=== PATIENT | female | born 1955 | race Caucasian/White ===

== ENCOUNTER 2016-11-12 16:58 | Inpatient (IN) | payer MEDICAID ==
[2016-11-12] MEDS ORDERED: NORMAL SALINE 1,000 ML IV ONE (18:04)
[2016-11-12 18:23] LABS: Hematocrit 45.8 % (37.0-47.0); Hemoglobin 15.5 gm/dL (12.5-16.0); Mean Corpuscular Hemoglobin 28.8 pg (27-31); Mean Corpuscular Hgb Conc 33.8 g/dl (32-36); Mean Platelet Volume 10.5 fl (6.0-9.5); Neutrophil # 11.6 K/mm3 (1.3-6.0); Neutrophil % 76.9 % (42-75.0); Platelet Count 245 K/mm3 (150-450); Red Blood Count 5.39 M/mm3 (4.2-5.4); Red Cell Distribution Width 13.6 % (11.5-14.0); White Blood Count 15.1 K/mm3 (4.0-10.5)
[2016-11-12 18:37] LABS: Urine Bilirubin 1 mg/dl (NEGATIVE); Urine Blood 50 /ul (NEGATIVE); Urine Ketone 15 mg/dL (NEGATIVE); Urine Nitrite Negative (NEGATIVE); Urine Protein 15 mg/dL (NEGATIVE); Urine Specific Gravity >=1.030 SP.GR. (1.005-1.010); Urine Urobilinogen Normal (NORMAL)
[2016-11-12 18:44] LABS: Albumin * 4.1 gm/dl (3.4-5.0); Anion Gap 15.2 mmol/L (6.8-13.8); BUN/Creatinine Ratio 21.1 (9.0-21.6); Bilirubin, Total 0.6 mg/dL (0.0-1.1); Ca. Corrected For Albumin 8.7 mg/dL (8.4-10.2); Calcium * 9.1 mg/dL (7.9-10.9); Carbon Dioxide 24.6 mmol/L (24-32.6); Potassium 2.8 mmol/L (3.4-4.6); T4 Free * 1.08 ng/dL (0.76-1.46); TSH * 0.783 uIU/mL (0.358-3.74); Total Protein 8.1 gm/dL (6.2-8.2); Troponin I 0.03 ng/ml (0.00-0.10)
--- NOTE | 2016-11-12 18:47 | ERNOTE ---
Neuro HPI ER Record Date of Service: 11/12/16 Presenting Symptoms: weakness - left sided weakness, facial droop - left sided facial droop, visual loss Time Seen by Provider: 11/12/16 17:34 Source: patient Exam Limitations: no limitations Allergies/Adverse Reactions: Allergies Allergy/AdvReac Type Severity Reaction Status Date / Time Penicillins Allergy Verified 11/12/16 17:07 Home Medications: HOME MEDICATIONS ALPRAZolam [Xanax] 0.25 mg PO TID 11/12/16 [Last Taken Unknown] Metoprolol Succinate [Toprol Xl] 25 mg PO BID 11/12/16 [Last Taken Unknown] - History of Present Illness Narrative: Pt presents to the ED with c/o headache and hypertension. Pt rates headache pain 03/10. Pt admits to dizziness, lightheadedness that started yesterday. Pt states she took multiple tablets of her blood pressure medication unsure of the exact number because she felt like her blood pressure was elevated. Pt states after she took the medication she had to lye down because she felt like she was going to pass out. Pt states she has been having headaches for past 3 months now along with dizziness. Pt states yesterday she had a hard time getting her words out. She knew what she wanted to say but was unable to say it. Pt also states she had left sided weakness yesterday. She tried to lift a pencil and dropped it. Pt also admits to vision changes. Pt states her left eye is worse than right but is not able to see a complete picture. She sees black spots when focusing on something or trying to read. Pt further states that when she gets dizzy the room doesn't spin she feels like she is spinning. Pt denies falling. Date (Duration): 11/11/16 Last Date Known Well: 11/12/16 Last Time Known Well: 18:23 Onset: sudden onset Severity: moderate - Character of Deficits New weakness: Present: LUE, LLE, facial (lt) Additional Deficits: Present: vision problems, impaired speech, weakness. Absent: difficulty swallowing, decrease ability to stand, decrease ability to walk, falling, off balance, cannot walk, cannot stand, bed-ridden Baseline Cognition: Present: alert, oriented x 4 Baseline Gait: Present: walks w/o assistance Associated Symptoms: Reports: headache - pain 03/10. Denies: fever/chills, sweating, chest pain, neck/back pain, fainting, seizure, altered mental status, disoriented, confused, trouble concentrating, unresponsive Review of Systems - Review of Systems Constitutional: Present: weakness - left sided weakness. Absent: recent illness , fever, chills, fatigue, malaise EYE: Present: blurred vision, vision changes - unable to see complete picture. Sees black spots. Absent: eye discharge, double vision ENT: Present: no symptoms reported. Absent: ear pain, nose pain, nose congestion, nasal drainage, sore throat Respiratory: Present: no symptoms reported. Absent: shortness of breath, cough , wheezing Cardiology: Present: other - feels like heart is doing flip flops. Absent: chest pain, palpitations Gastrointestinal/Abdominal: Present: nausea. Absent: vomiting, diarrhea, constipation, abdominal pain Genitourinary: Present: no symptoms reported. Absent: frequency, pain Musculoskeletal: Present: no symptoms reported. Absent: back pain, muscle pain , neck pain Skin: Present: no symptoms reported. Absent: rash, change in color Neurological: Present: headache - pain 7/10, dizziness/light-headedness, weakness - left side of body. Absent: anxiety, depressed, seizure, numbness, tingling Endocrine: Present: no symptoms reported. Absent: excessive sweating, flushing , intolerance to heat, intolerance to cold, increased hunger, increased thirst, increased urine Hematologic/Lymphatic: Present: no symptoms reported. Absent: easy bruising, easy bleeding Psych: Present: no symptoms reported. Absent: anxiety, depressed All Other Systems: All systems neg except as marked - Patient's Past Medical History Patient History - Medical: Anxiety, Diabetes Type 1, Headache, Other Patient History - Cardiac/Respiratory: Hypertension, Hyperlipidemia Patient History - Cancer: No Hx of Cancer Patient History - Surgical Procedures: Appendectomy, Back Surgery, Cholecystectomy, Hysterectomy - Social History Smoking Status: Current every day smoker Have you smoked in the past 12 months: Yes Physical Exam - Physical Exam General Appearance: Present: wd/wn, alert, no apparent distress, active, attentive for age. Absent: anxious, lethargic Eye Exam: Normal inspection: bilateral, PERRL: bilateral, EOMI: bilateral Ears, Nose, Throat: Present: normal ENT inspection, normal pharynx. Absent: hearing decreased, nasal congestion, sinus pain/drainage Neck: Present: normal inspection, nontender, supple, full range of motion Respiratory: Present: no respiratory distress, normal breath sounds, no accessory muscle use, chest nontender, lungs clear. Absent: decreased breath sounds, crackles, rales, rhonchi, stridor, wheezing, pleural rub Cardiovascular/Chest: Present: regular rate, rhythm, no murmur, normal peripheral pulses. Absent: tachycardia, bradycardia Gastrointestinal/Abdominal: Present: normal bowel sounds, nontender, nondistended, soft, no organomegaly. 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 Absent: decreased range of motion Neurological Exam: Present: alert, oriented, normal mood/affect, no motor/ sensory deficits, facial droop - left sided facial droop and drooling. 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 Absent: skin rash Lymphatic Exam: Present: no adenopathy Slava Coma Scale - Assess Eye Opening: Spontaneous Motor: Obeys Commands Verbal: Oriented - Total Coma Scale Total: 15 Initial Stroke Assessment - Date/Time of assessment Stroke Scale Date: 11/12/16 Stroke Scale Time: 18:00 - NIH Stroke Scale Level of Consciousness: Alert LOC Questions (Year and Age): Answers both correctly LOC Commands (open/close eyes/fist): Performs both correctly Lateral Gaze Paresis: None Visual Field Loss: Partial hemianopsia - left eye Facial Palsy: Partial facial paralysis - left sided facial droop Right Arm Motor (10 sec hold): No drift Left Arm Motor (10 sec hold): No drift Right Leg Motor (5 sec hold): No drift Left Leg Motor (5 sec hold): No drift Limb Ataxia (finger/nose heel/keenan): Present in 1 limb If present, ataxia in:: Left arm Sensory Loss (pinprick arms/legs/face): No sensory loss Language Aphasia (description/naming/reading): No aphasia; normal Dysarthria (speech clarity): Slurring, intelligeble Neglect Inattention (visual/tactile/auditory/spatial/person): No neglect Initial Stroke Scale Score:: 5 - Stroke Risk Assessment Stroke Risk Assessment Level: 5-15 Mild-Mod Severe Imp Stroke Inclusion/Exclusion Cri - A Inclusion (Must answer Yes to meet): No - Inclusion Questions: Yes Onset of symptoms <3 1/2 hours of admission to ETC: No - B Exclusion (Must answwer No to meet): yes - Exclusion Questions: Major symptoms rapidly improving: No Seizure at onset of stroke: No SBP>185; DBP>110 at time treatment is to begin: Yes Patient received Heparin or Coumadin within 48 hours: No Patient has elevated PTT or Protime/INR: No Stroke, head injury, major surgery, serious trauma in 3 mon.: No Previous intracranial hemmorhage: No Recent IL: No Known AV malformation or aneurysm: No Blood glucose <50mg/dl or >400mg/dl: No NIHSS Score <4 or >22 performed by physician: No - Total NIHSS Score Score:: 5 ED Progress - Date and Time Seen: Date and Time: 11/12/16 20:11 Discussed with Triny and we will admit for CVA. - Results and Orders Patient's Lab Results:: I have reviewed the patient's lab results. - Vital Signs Patient's Vital Signs:: I have reviewed the patient's vital signs. Vital Signs: Vital Signs 11/12/16 11/12/16 17:03 17:34 Temperature 36.7 C 36.9 C Pulse Rate 80 75 Respiratory 14 14 Rate Blood Pressure 153/88 186/82 O2 Sat by Pulse 100 95 Oximetry - EKG EKG: other - sinus rhythm with u wave or possible flutter EKG read: Interp. by me - X-Ray X-Ray #1 X-Ray: chest Interpretation: Reviewed by me X-ray Comments: hyperinflation no acute - CT/Ultrasound CT/Ultrasound Narrative: CT with evidence for sub acute CVA involving R temporal and mid to posterior R parietal. - Progress/Reassessment Chief Complaint: Headache Departure Clinical Impression: Hypokalemia CVA (cerebral vascular accident) Qualifiers: CVA mechanism: unspecified Qualified Code(s): I63.9 - Cerebral infarction, unspecified - Departure Disposition: [facility] Condition: Fair
[2016-11-12 18:53] LABS: Urine Appearance Clear; Urine Bacteria 2+; Urine Color Yellow; Urine RBC 0-5 /hpf (0-5)
[2016-11-12] MEDS ORDERED: POTASSIUM CHLORIDE 20 MEQ TABLET.SA PO ONE (19:38)
[2016-11-12] MEDS ORDERED: POTASSIUM CHLORIDE 20 MEQ TABLET.SA ONE (19:42)
[2016-11-12] MEDS: POTASSIUM CHLORIDE 100 ML IV SCH (20:18)
[2016-11-12 21:00] LABS: Hemoglobin A1C 5.7 % (4.00-6.0)
--- NOTE | 2016-11-12 21:04 | HP ---
Chief Complaint - Chief Complaint Date of Service: 11/12/16 Time of Service: 20:41 Chief Complaint: Weakness, slurred speech, drooling History of Present Illness: 60 years old female adm to the hospital from ER with reports of weakness, slurred speech and drooling that began last Friday. PMH significant for hypertension, migraine, anxiety and smoker. Pt stated while at work on Friday she was having severe headache that was unrelieved with ibuprofen, she noticed that she was having problem remembering, paralysis in left hand as items would fall from her hand. Pt report hard time drinking thin liquids and haven't had anything to eat since. Pt stated since Friday her s/s haven't progress worst or got better so she came to the ER today. When seen she denies headache , blurred vision, palpitation. or progression or deficits. In ER CT head: Subacute cortical infraction involving the right temporal and mid-posterior right parietal lobe. MRI brain pending, carotid duplex pending. pt is agreeable for nicotine patch. Plan of care discussed with pt she verbalized understanding ad agree. - Patient's Past Medical History Patient History - Medical: Anxiety, Headache, Other - smoker Patient History - Cardiac/Respiratory: Hypertension Patient History - Cancer: No Hx of Cancer Patient History - Surgical Procedures: Appendectomy, Back Surgery - laminectomy , Cholecystectomy, Hysterectomy - Family History Father Family History - Cardiac/Respiratory: Hypertension, Myocardial Infarction Grandmother-Paternal Family History - Cardiac/Respiratory: CVA/Stroke - Social History Living Situations: alone Abuse History: No History of abuse Psych History: Hx of Anxiety Does anyone smoke in the home?: Yes Smoking Status: Current every day smoker Have you smoked in the past 12 months: Yes Do you dip or chew tobacco: No Patient requests Smoking Cessation Consult: Yes Initiate information on Smoking Cessation: Yes Alcohol Use: none Drug Use: none Review Of Systems (GEN) - Review of Systems Generalized/Overall Review: Present: Weakness EENTM: Present: No Symptoms Reported Respiratory: Present: No Symptoms Reported Cardiac: Present: No Symptoms Reported Abdominal: Present: No Symptoms Reported Genitourinary: Present: No Symptoms Reported Musculoskeletal: Present: Other - weakness Neurological: Present: Headache, Weakness Skin: Present: No Symptoms Reported Endocrine: Present: No Symptoms Reported Allergies/Adverse Reactions: Allergies Allergy/AdvReac Type Severity Reaction Status Date / Time Penicillins Allergy Verified 11/12/16 17:07 Home Medications: HOME MEDICATIONS ALPRAZolam [Xanax] 0.25 mg PO TID 11/12/16 [Last Taken Unknown] Metoprolol Succinate [Toprol Xl] 25 mg PO BID 11/12/16 [Last Taken Unknown] Exam - Exam Vital Signs: Vital Signs - Last Taken Temp 36.9 C 11/12/16 17:34 Pulse 83 11/12/16 20:24 Resp 18 11/12/16 20:24 BP 174/75 11/12/16 20:24 Pulse Ox 94 11/12/16 20:24 Constitutional: Present: Alert, Oriented x3, Cooperative, Well developed, No distress, Middle aged, Obese ENT Exam: Present: dry mucous membranes, other - dysphagia Neck: Present: full range of motion Back Exam: Present: normal inspection Breasts: Present: Exam deferred Respiratory: Present: chest non-tender, normal breath sounds, no respiratory distress, decreased breath sounds Cardiovascular/Chest: Present: normal peripheral pulses, regular rate, rhythm, no chest tenderness, no edema Abdomen: Present: Normal bowel sounds, soft, nontender, nondistended, no rebound tenderness /Rectal: Present: Exam deferred Extremity: Present: other - Leftside hemiparesis Skin Exam: Present: normal color, warm/dry, no cyanosis Neurologic: Present: oriented x 3, facial droop - Leftside, motor weakness Appearance: Present: appropriate insight Eye contact: Present: cooperative, good eye contact Thoughts: Present: no apparent hallucination Diagnostic Studies: Laboratory Results WBC 15.1 K/mm3 (4.0-10.5) H 11/12/16 18:10 RBC 5.39 M/mm3 (4.2-5.4) 11/12/16 18:10 Hgb 15.5 gm/dL (12.5-16.0) 11/12/16 18:10 Hct 45.8 % (37.0-47.0) 11/12/16 18:10 MCV 85.0 fl (78-100) 11/12/16 18:10 MCH 28.8 pg (27-31) 11/12/16 18:10 MCHC 33.8 g/dl (32-36) 11/12/16 18:10 RDW 13.6 % (11.5-14.0) 11/12/16 18:10 Plt Count 245 K/mm3 (150-450) 11/12/16 18:10 MPV 10.5 fl (6.0-9.5) H 11/12/16 18:10 Immature Gran % (Auto) 0.40 % (0.001-0.429) 11/12/16 18:10 Immature Gran # (Auto) 0.06 K/mm3 (0.000-0.0310) H 11/12/16 18:10 Neutrophils % 76.9 % (42-75.0) H 11/12/16 18:10 Lymphocytes % 17.8 % (20-51) L 11/12/16 18:10 Monocytes % 4.6 % (0.0-9) 11/12/16 18:10 Eosinophils % 0.2 % (0.0-3.0) 11/12/16 18:10 Basophils % 0.1 % (0.0-1.0) 11/12/16 18:10 Nucleated RBC % 0.0 k/mm3 (0-1) 11/12/16 18:10 Neutrophils # 11.6 K/mm3 (1.3-6.0) H 11/12/16 18:10 Lymphocytes # 2.7 k/mm3 (1.5-3.5) 11/12/16 18:10 Monocytes # 0.7 k/mm3 (0.0-1.0) 11/12/16 18:10 Eosinophils # 0.0 k/mm3 (0.0-0.7) 11/12/16 18:10 Absolute Basophils 0.0 k/mm3 (0.0-0.1) 11/12/16 18:10 D-Dimer 0.44 mg/L (0.19-0.49) 11/12/16 18:10 Sodium 143 mmol/L (132-142) H 11/12/16 18:10 Plasma Sodium 143 mmol/L (130-142) H 11/12/16 18:10 Potassium 2.8 mmol/L (3.4-4.6) L 11/12/16 18:10 Chloride 106 mmol/L (97-106) 11/12/16 18:10 Carbon Dioxide 24.6 mmol/L (24-32.6) 11/12/16 18:10 Anion Gap 15.2 mmol/L (6.8-13.8) H 11/12/16 18:10 BUN 20 mg/dL (3-23) 11/12/16 18:10 Creatinine 0.95 mg/dL (0.4-1.4) 11/12/16 18:10 Est GFR (Non-Af Amer) 64 mL/min (60-130) 11/12/16 18:10 BUN/Creatinine Ratio 21.1 (9.0-21.6) 11/12/16 18:10 Random Glucose 102 mg/dL (70-110) 11/12/16 18:10 Calcium 9.1 mg/dL (7.9-10.9) 11/12/16 18:10 Calcium Adj for Albumin 8.7 mg/dL (8.4-10.2) 11/12/16 18:10 Total Bilirubin 0.6 mg/dL (0.0-1.1) 11/12/16 18:10 AST 18 U/L (0-48) 11/12/16 18:10 ALT 20 U/L (19-67) 11/12/16 18:10 Alkaline Phosphatase 89 U/L (50-170) 11/12/16 18:10 Troponin I 0.030 ng/ml (0.00-0.10) 11/12/16 18:10 Total Protein 8.1 gm/dL (6.2-8.2) 11/12/16 18:10 Albumin 4.1 gm/dl (3.4-5.0) 11/12/16 18:10 TSH 0.783 uIU/mL (0.358-3.74) 11/12/16 18:10 Free T4 1.08 ng/dL (0.76-1.46) 11/12/16 18:10 Urine Color Yellow 11/12/16 18:20 Urine Appearance Clear 11/12/16 18:20 Urine pH 6.0 pH (5.0-7.0) 11/12/16 18:20 Ur Specific [place] >=1.030 SP.GR. (1.005-1.010) 11/12/16 18:20 Urine Protein 15 mg/dL (NEGATIVE) H 11/12/16 18:20 Urine Glucose (UA) Negative mg/dL (NEGATIVE) 11/12/16 18:20 Urine Ketones 15 mg/dL (NEGATIVE) 11/12/16 18:20 Urine Blood 50 /ul (NEGATIVE) H 11/12/16 18:20 Urine Nitrate Negative (NEGATIVE) 11/12/16 18:20 Urine Bilirubin 1 mg/dl (NEGATIVE) H 11/12/16 18:20 Urine Ictotest QNS 11/12/16 18:20 Prot Sulfosalicylic Acd QNS 11/12/16 18:20 Urine Urobilinogen Normal EU/dl (NORMAL) 11/12/16 18:20 Ur Leukocyte Esterase 100 /ul (NEGATIVE) H 11/12/16 18:20 Urine RBC 0-5 /hpf (0-5) 11/12/16 18:20 Urine WBC 10-25 /hpf (0-5) H 11/12/16 18:20 Ur Epithelial Cells 0-5 /hpf (0-5) 11/12/16 18:20 Urine Bacteria 2+ (NONE) H 11/12/16 18:20 Urine Culture Comments Culture to follow 11/12/16 18:20 Assessment/Plan - Narrative Narrative: Subacute CVA CT head:with evidence for subacute CVA involving right temporal and mid to posterior right parietal lobe. MRI head pending and Hold anticoag until MRI result obtained US carotid pending 2D echo pending Lipid and A1C pending Smoking cessation, initiated nicotine patch Aspirin 81mg q day PT/OT evaluation and treatment Keep NPO and Swallow evaluation Hypokalemia on adm K+ 2.9 Supplemented Monitor CMP in am Hypertension On adm BP 174/75 Permissive hypertension Monitor vital signs Q shift and PRN Smoker: smoking cessation Nicotine patch Migraine- stable Code status: Full Code Anticipate discharge 1-2 days to rehab and follow up with PCP VTE ppx: SCD and ambulate Time 35 minutes - Assessment/Plan (1) Hypokalemia Problem: Acute (2) Hypertension Problem: Chronic Qualifiers: Hypertension type: essential hypertension Qualified Code(s): I10 - Essential (primary) hypertension (3) CVA (cerebral vascular accident) Problem: Acute Qualifiers: CVA mechanism: unspecified Qualified Code(s): I63.9 - Cerebral infarction, unspecified
[2016-11-13] MEDS ORDERED: DEXTROSE 5%-0.5 NORMAL SALINE 1,000 ML IV PRN (00:15)
[2016-11-13] MEDS ORDERED: ALPRAZolam 0.25 MG TABLET PO ONE (00:56)
--- NOTE | 2016-11-13 06:49 | PN ---
Subjective - Date and Time Seen Date: 11/13/16 Time: 06:43 Subjective Narrative: patient seen today AOX3 no acute distress, pt denies progression of s/s overnight. pt is anxious and want to improve quickly. Objective - Review of Systems Generalized/Overall Review: Reports: No Symptoms Reported EENTM: Reports: No Symptoms Reported Respiratory: Reports: No Symptoms Reported Abdominal: Reports: No Symptoms Reported Genitourinary Symptoms: Reports: No Symptoms Reported Musculoskeletal Complaints: Reports: Other - Left side hemeparesis Skin: Reports: No Symptoms Reported Endocrine: Reports: No Symptoms Reported - Vitals Vitals: Last Vital Signs Temp 36.5 C 11/13/16 00:54 Pulse 66 11/13/16 02:32 Resp 20 11/13/16 00:54 BP 152/53 11/13/16 00:54 Pulse Ox 97 11/13/16 00:54 - Exam Constitutional: Present: Alert, Oriented x3, Cooperative, Well developed, No distress ENT Exam: Present: moist mucous membranes Neck: Present: full range of motion Breasts: Present: Exam deferred Respiratory: Present: chest non-tender, lungs clear, normal breath sounds, no respiratory distress Cardiovascular/Chest: Present: normal peripheral pulses, regular rate, rhythm, no chest tenderness, no edema Abdomen: Present: Normal bowel sounds, soft, nontender, nondistended, no rebound tenderness /Rectal: Present: Exam deferred Extremity: Present: normal range of motion, normal inspection, no pedal edema, no calf tenderness Skin Exam: Present: normal color, warm/dry, no cyanosis Neurologic: Present: oriented x 3, facial droop Appearance: Present: appropriate appearance Eye contact: Present: cooperative Thoughts: Present: normal thought pattern Assessment/Plan Plan Narrative: CVA CT head:with evidence for subacute CVA involving right temporal and mid to posterior right parietal lobe. MRI head pending and Hold anticoag until MRI result obtained US carotid pending 2D echo pending Lipid panel pending A1C 5.7 noted Smoking cessation, initiated nicotine patch Aspirin 81mg q day PT/OT evaluation and treatment Keep NPO and Swallow evaluation Hypokalemia on adm K+ 2.9 Supplemented CMP pending Hypertension On adm BP 174/75---->131/59 Permissive hypertension Monitor vital signs Q shift and PRN Smoker: smoking cessation Nicotine patch Migraine- stable UTI: Bactrim x3 days On adm WBC 15.1 Urine culture pending Code status: Full Code Anticipate discharge 1-2 days to rehab and follow up with PCP VTE ppx: SCD and ambulate Time 20 minutes - Problems/Diagnosis (1) Hypokalemia Problem: Acute (2) Hypertension Problem: Chronic Qualifiers: Hypertension type: essential hypertension Qualified Code(s): I10 - Essential (primary) hypertension (3) CVA (cerebral vascular accident) Problem: Acute Qualifiers: CVA mechanism: unspecified Qualified Code(s): I63.9 - Cerebral infarction, unspecified (4) UTI (urinary tract infection) Problem: Acute
[2016-11-13 07:25] LABS: Albumin * 3.5 gm/dl (3.4-5.0); Anion Gap 14.3 mmol/L (6.8-13.8); BUN/Creatinine Ratio 16.7 (9.0-21.6); Bilirubin, Total 0.7 mg/dL (0.0-1.1); Ca. Corrected For Albumin 8.6 mg/dL (8.4-10.2); Calcium * 8.5 mg/dL (7.9-10.9); Carbon Dioxide 25.4 mmol/L (24-32.6); Potassium 2.7 mmol/L (3.4-4.6); Total Protein 6.7 gm/dL (6.2-8.2)
[2016-11-13 07:26] LABS: Chol/HDL Risk Ratio 3.1 mg/dL (3.3-4.4)
[2016-11-13] MEDS ORDERED: METOPROLOL SUCCINATE 25 MG TABLET.SA PO SCH (09:00)
[2016-11-13] MEDS: ASPIRIN 81 MG TAB.CHEW PO SCH (09:16)
[2016-11-13] MEDS: SULFAMETHOXAZOLE/TRIMETHOPRIM 1 TAB TABLET PO SCH ×3 (09:17→20:30)
[2016-11-13] MEDS: ALPRAZolam 0.5 MG TABLET PO SCH ×3 (09:19→17:42)
[2016-11-13] MEDS: NICOTINE 21 MG PATC TD SCH (09:23)
[2016-11-13] MEDS ORDERED: POTASSIUM CHLORIDE 20 MEQ TABLET.SA PO STA (14:29)
[2016-11-13] MEDS: POTASSIUM CHLORIDE 20 MEQ TABLET.SA PO SCH (17:41)
[2016-11-13] MEDS: POTASSIUM CHLORIDE 100 ML IV SCH (17:54)
[2016-11-13] MEDS: ROSUVASTATIN CALCIUM 10 MG TABLET PO SCH (20:30)
[2016-11-13] MEDS: METOPROLOL TARTRATE 25 MG TABLET PO SCH (20:32)
[2016-11-14 06:04] LABS: Hematocrit 41.6 % (37.0-47.0); Mean Cell Volume 86.1 fl (78-100); Mean Corpuscular Hgb Conc 33.7 g/dl (32-36); Mean Platelet Volume 10.8 fl (6.0-9.5); Platelet Count 215 K/mm3 (150-450); Red Blood Count 4.83 M/mm3 (4.2-5.4); Red Cell Distribution Width 13.9 % (11.5-14.0); White Blood Count 12.2 K/mm3 (4.0-10.5)
[2016-11-14 06:28] LABS: Anion Gap 14.2 mmol/L (6.8-13.8); BUN/Creatinine Ratio 14.9 (9.0-21.6); Calcium * 8.8 mg/dL (7.9-10.9); Carbon Dioxide 25.3 mmol/L (24-32.6); Estimated Creat Clear 50.6; Potassium 3.5 mmol/L (3.4-4.6)
[2016-11-14] MEDS: SULFAMETHOXAZOLE/TRIMETHOPRIM 1 TAB TABLET PO SCH ×2 (08:57→21:13)
[2016-11-14] MEDS: ALPRAZolam 0.5 MG TABLET PO SCH ×3 (08:57→17:14)
[2016-11-14] MEDS: ASPIRIN 81 MG TAB.CHEW PO SCH (08:58)
[2016-11-14] MEDS: POTASSIUM CHLORIDE 20 MEQ TABLET.SA PO SCH ×2 (08:58→17:14)
[2016-11-14] MEDS: METOPROLOL TARTRATE 25 MG TABLET PO SCH ×2 (08:59→21:14)
[2016-11-14] MEDS: NICOTINE 21 MG PATC TD SCH (09:02)
--- NOTE | 2016-11-14 16:01 | ECHO ---
This report is available in the EMR
[2016-11-14] MEDS: ROSUVASTATIN CALCIUM 10 MG TABLET PO SCH (21:13)
--- NOTE | 2016-11-14 21:37 | PN ---
Subjective - Date and Time Seen Date: 11/14/16 Time: 21:33 Subjective Narrative: Patient seen today with family friend at the bedside, she is AOX3 no acute distress. Pt denies progression or neuro deficits. Anticipating discharge home tomorrow. Objective - Review of Systems Generalized/Overall Review: Reports: No Symptoms Reported EENTM: Reports: Other - leftside facial droop Respiratory: Reports: No Symptoms Reported Cardiac: Reports: No Symptoms Reported Abdominal: Reports: No Symptoms Reported Genitourinary Symptoms: Reports: No Symptoms Reported Musculoskeletal Complaints: Reports: No Symptoms Reported Neurological: Reports: No Symptoms Reported Skin: Reports: No Symptoms Reported Endocrine: Reports: No Symptoms Reported - Vitals Vitals: Last Vital Signs Temp 37.1 C 11/14/16 19:35 Pulse 62 11/14/16 21:14 Resp 18 11/14/16 19:35 BP 135/62 11/14/16 21:14 Pulse Ox 93 11/14/16 19:35 - Abnormal Lab Findings Abnormal Lab Findings: Abnormal Lab Results 11/14/16 11/14/16 Range/Units 05:42 05:42 WBC 12.2 H (4.0-10.5) K/mm3 MPV 10.8 H (6.0-9.5) fl Sodium 145 H (132-142) mmol/L Plasma Sodium 145 H (130-142) mmol/L Chloride 109 H (97-106) mmol/L Anion Gap 14.2 H (6.8-13.8) mmol/L - Exam Constitutional: Present: Alert, Oriented x3, Cooperative, Well developed, No distress, Young ENT Exam: Present: moist mucous membranes Neck: Present: full range of motion Breasts: Present: Exam deferred Respiratory: Present: chest non-tender, lungs clear, normal breath sounds, no respiratory distress Cardiovascular/Chest: Present: normal peripheral pulses, regular rate, rhythm, no chest tenderness, no edema Abdomen: Present: Normal bowel sounds, soft, nontender, nondistended, no rebound tenderness /Rectal: Present: Exam deferred Extremity: Present: non-tender, normal inspection, no pedal edema, no calf tenderness, other - leftside hemiparesis Neurologic: Present: oriented x 3 Appearance: Present: appropriate appearance Eye contact: Present: cooperative, good eye contact Thoughts: Present: normal thought pattern Assessment/Plan Plan Narrative: Large right side ischemic CVA CT head:with evidence for subacute CVA involving right temporal and mid to posterior right parietal lobe. 11/13/16: MRI head : large geographic area of restriction diffusion involving right temporal and partietal lobes and minimally right occipital lobes. Focal areas of nodular enhancement. Pt to follow-up MRI through her PCP after discharge in approximately 3 months to monitor for resolution of nodular enhancement noted on MRI US carotid Left and right internal and external artery stenosis. Atorvastatin 40mg daily and blood pressure control with goal BP <140/90 2D echo : EF 70% LVEF normal, A/E reversal noted possible diastolic dysfunction Lipid panel noted A1C 5.7 noted Smoking cessation, initiated nicotine patch Aspirin 81mg q day and continue with Metoprolol Tartrate BID Continue with speech/PT/OT evaluation and treatment Continue with diet per speech therapist recommendation Hypertension- stable Monitor vital signs Q shift and PRN Continue with Lopressor 25mg BID UTI: Bactrim x3 days On adm WBC 15.1--->12.2 Afebril since adm Urine culture Preliminary ruling out pathogen Smoker: smoking cessation Nicotine patch Migraine- stable Hypokalemia- resolved on adm K+ 2.9---> 3.5 Supplemented Code status: DNR Anticipate discharge tomorrow and follow up with PCP/ Rehab VTE ppx: SCD and ambulate Time 20 minutes - Problems/Diagnosis (1) Hypokalemia Problem: Resolved (2) Hypertension Problem: Chronic Qualifiers: Hypertension type: essential hypertension Qualified Code(s): I10 - Essential (primary) hypertension (3) CVA (cerebral vascular accident) Problem: Acute Qualifiers: CVA mechanism: unspecified Qualified Code(s): I63.9 - Cerebral infarction, unspecified (4) UTI (urinary tract infection) Problem: Acute
[2016-11-15 05:56] LABS: Hematocrit 42.9 % (37.0-47.0); Hemoglobin 14.2 gm/dL (12.5-16.0); Mean Cell Volume 86.8 fl (78-100); Mean Corpuscular Hemoglobin 28.7 pg (27-31); Mean Corpuscular Hgb Conc 33.1 g/dl (32-36); Mean Platelet Volume 10.8 fl (6.0-9.5); Neutrophil # 7.6 K/mm3 (1.3-6.0); Neutrophil % 63.6 % (42-75.0); Platelet Count 229 K/mm3 (150-450); Red Blood Count 4.94 M/mm3 (4.2-5.4); Red Cell Distribution Width 14.1 % (11.5-14.0); White Blood Count 11.9 K/mm3 (4.0-10.5)
[2016-11-15 06:33] LABS: Albumin * 3.5 gm/dl (3.4-5.0); Anion Gap 14.6 mmol/L (6.8-13.8); BUN/Creatinine Ratio 17.5 (9.0-21.6); Bilirubin, Total 0.5 mg/dL (0.0-1.1); Ca. Corrected For Albumin 8.9 mg/dL (8.4-10.2); Calcium * 8.8 mg/dL (7.9-10.9); Carbon Dioxide 24.3 mmol/L (24-32.6); Potassium 3.9 mmol/L (3.4-4.6)
[2016-11-15 07:32] VITALS: BP 109/42
[2016-11-15] MEDS: NICOTINE 21 MG PATC TD SCH (08:24)
[2016-11-15] MEDS: ALPRAZolam 0.5 MG TABLET PO SCH (08:31)
[2016-11-15] MEDS: METOPROLOL TARTRATE 25 MG TABLET PO SCH (08:32)
[2016-11-15] MEDS: SULFAMETHOXAZOLE/TRIMETHOPRIM 1 TAB TABLET PO SCH (08:32)
[2016-11-15] MEDS: POTASSIUM CHLORIDE 20 MEQ TABLET.SA PO SCH (08:33)
[2016-11-15] MEDS: ASPIRIN 81 MG TAB.CHEW PO SCH (08:33)
--- NOTE | 2016-11-15 09:38 | DS ---
(1) CVA (cerebral vascular accident) Problem: Acute Qualifiers: CVA mechanism: unspecified (2) UTI (urinary tract infection) Diagnosis(s): Treated with Bactrim DS. Urine culture was negative, so no antibiotics continued at discharge. Problem: Resolved (3) Hypertension Problem: Chronic Qualifiers: Hypertension type: essential hypertension Qualified Code(s): I10 - Essential (primary) hypertension Description of Stay: Mrs. Cason was admitted through the emergency room on 11/12/2016 after reporting symptoms of slurred speech and drooling which began on 11/08/2016. She was noted to have a left facial droop. She also noted impaired coordination of her right hand and right visual field cut. CT of the brain in the emergency room shows subacute cortical infarction involving the right temporal and posterior parietal lobe. Carotid duplex was performed which did not show any significant stenosis. MRI of the brain on 11/13/2016 shows large geographic area of restricted diffusion involving the right temporal and parietal lobes and minimally the right occipital lobe as well. There is also a separate area of restricted diffusion in the right periventricular white matter. A focal area of nodular enhancement was seen within the cortical surface of the posterior right parietal lobe in the area of infarct and is most likely related to the infarct although there is recommendation for follow-up MRI in 3-6 months as potential neoplastic lesion would be difficult to exclude. Mrs. cason was evaluated by physical, occupational, and speech therapies. She underwent a barium swallow study which did not show any aspiration. She's been tolerating a general diet. Antihypertensives were transitioned from metoprolol tartrate to lisinopril. She was also placed on a high intensity statin. She had not been taking aspirin prior to admission and aspirin 81 mg daily was initiated. Echocardiogram was obtained on 11/13/2016 and shows normal left ventricular ejection fraction of approximately 70%. No atrial septal defect. No left ventricular thrombus. She is hemodynamically stable. Her balance is good. She is independent and all of her basic activities of daily living. She has complained of a mild headache. We reviewed signs and symptoms of stroke which would include facial droop, weakness especially on once of the body, numbness or tingling. She was also strongly encouraged to quit smoking. We discussed that depression is fairly common after an ischemic stroke. It was recommended that she trial and antidepressant drug. She will discuss this with her primary care provider at follow-up. She will be discharged home today. She was offered outpatient therapies. Procedures Performed: see notes below List Procedures: MRI of the brain on 11/13/2016, echocardiogram on 11/13/2016, carotid duplex on 11/13/2016 Discharge Disposition: Home self care Disposition: Home self-care Condition: Good Discharge Activity: Activity as tolerated Discharge Diet: General/regular food [facility]pc Therapy: Occupation Therapy Referrals: Michael Coates MD [Primary Care Provider] - Problem Oriented Discharge Instructions to Patient/Family: Ischemic Stroke Treated Without Warfarin, [id number] Additional Patient Instructions (free text): 1. General diet 2. Activity as tolerated. 3. Call Dr. Coates for T>100.5 F, N/V, chest pain, shortness of breath. 4. Call 911 or go to the ER for signs or symptoms of stroke (think FAST symptoms ) 5. Stop smoking. 6. Exercise is a great way to reduce your risk for future stroke. Start by walking every day--10 to 15 minutes to build up stamina. 7. Start ASA 81 mg daily. 8. Atorvastatin 40 mg po daily to decrease your risk for future stroke. Prescriptions (Any new or edited meds): Atorvastatin Calcium 40 mg PO DAILY #30 tablet Lisinopril [Zestril] 10 mg PO DAILY #30 tablet Complete Home Medications List: Complete Home Medication List: ALPRAZolam [Xanax] 0.25 mg PO TID 11/12/16 Aspirin [Aspirin Chewable] 81 mg PO DAILY tab.chew 11/15/16 Atorvastatin Calcium 40 mg PO DAILY #30 tablet 11/15/16 Lisinopril [Zestril] 10 mg PO DAILY #30 tablet 11/15/16
[2016-11-15] MEDS ORDERED: ALPRAZolam 0.25 MG TABLET PO SCH (13:00)
== END 2016-11-15 11:00 | disposition home or self-care (01) | DRG 65 ==
LOC: ER 16:58 → MS 20:10 → UNDOADMIN 20:10 → MS 20:13
PROVIDERS: ADMIT Nurse Practitioner; ATTEND Internal Medicine
PROC: B246ZZZ Ultrasonography of Right and Left Heart (ICD-10-PCS; principal; 2016-11-13)
DX: I63.9 Cerebral infarction, unspecified (principal); G81.94 Hemiplegia, unspecified affecting left nondominant side; N39.0 Urinary tract infection, site not specified; R29.810 Facial weakness; R47.81 Slurred speech; E87.6 Hypokalemia; I10 Essential (primary) hypertension; F17.200 Nicotine dependence, unspecified, uncomplicated